=== PATIENT | female | born 2000 | race Caucasian/White ===

== ENCOUNTER 2021-04-17 09:04 | Outpatient (CLI) | payer OTHER, SELFPAY ==
[2021-04-17 09:31] LABS: Hematocrit 42.5 % (37.0-47.0); Mean Corpuscular HGB Conc 32.9 g/dl (32-36); Mean Corpuscular Hemoglobin 30.1 pg (26-34); Mean Corpuscular Volume 91.4 fl (80-100); Mean Platelet Volume 11.2 fl (7.4-10.4); Platelet Count Result 197 k/mm3 (150-375); Red Blood Count 4.65 M/mm3 (4.2-5.4); Red Cell Distribution Width 12.6 % (11.5-14.5); White Blood Count 3.1 K/mm3 (4.5-10.0)
[2021-04-17 09:48] LABS: Anion Gap 8 mmol/L (8-16); Blood Urea Nitrogen 15 mg/dL (7-17); Calcium 9.7 mg/dL (8.4-10.2); Carbon Dioxide 28 mmol/L (22-30); Chloride 103 mmol/L (98-107); Estimated Glomerular Filt Rate > 60; Glucose 99 mg/dL (65-110); Potassium 4.3 mmol/L (3.4-5.0); Sodium 139 mmol/L (137-145)
[2021-04-17 11:49] LABS: Iron 54 ug/dL (37-170)
== END 2021-04-17 09:05 | disposition home or self-care (01) ==
PROVIDERS: PCP Family Medicine; Visit Provider Nurse Practitioner Family
DX: R20.2 Paresthesia of skin (principal); D64.9 Anemia, unspecified; F41.9 Anxiety disorder, unspecified
CPT/HCPCS: 36415; 80048; 82607; 83540; 84443; 85027

== ENCOUNTER 2022-09-21 12:07 | Emergency (ER) | payer OTHER, SELFPAY ==
[2022-09-21 12:21] VITALS: BP 117/73; PULSE 67; RESP 16; TEMP 37; O2SAT 100
--- NOTE | 2022-09-21 12:30 | ED.EAR ---
HPI - Ear Problem General Chief complaint: Ear Stated complaint: ear pain Time Seen by Provider: 09/21/22 12:25 Source: patient Mode of arrival: ambulatory Limitations: no limitations History of Present Illness HPI Narrative: Ms. Bushra tan is a 22-year-old female patient presenting to the clinic today with complaints of right-sided ear pain for the last few days. She reports that she is having some ringing and some throbbing in the right ear. She thinks that she may have an ear infection. She denies any fevers or chills. She has slight and nasal congestion. Related Data Allergies Allergy/AdvReac Type Severity Reaction Status Date / Time No Known Allergies Allergy Verified 09/21/22 12:18 Review of Systems Review of Systems: Pertinent positives per HPI. Patient denies any fever, chills, rash, headache, visual changes, dizziness, cough, shortness of breath, chest pain, palpitations, nausea, vomiting, diarrhea, constipation, abdominal pain, or any urinary issues. PMFSH Past Medical History Medical History Anxiety Body mass index (BMI) of less than 5th percentile for age in patient 18 years to less than 21 years of age Family History Family History Father Diabetes mellitus Mother No problems noted. Sibling No problems noted. 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 There is no relevant family history pertinent to the patient complaint. Exam Narrative: General: Well-developed, well nourished, in no apparent distress Head: Normocephalic, atraumatic Eyes: Pupils equally round and reactive to light bilaterally, EOM intact, sclera and conjunctive clear, no discharge, lids normal Ears: TMs intact, dull, with right TM bulging, ear canals clear, no drainage, grossly hearing normal. Nose: Nares patent, clear nasal discharge, no inflammation, no sinus tenderness. Mouth: Oral pharynx without lesions or masses, good dentition, MMM. Neck: Supple, trachea midline, no enlargement of anterior or posterior cervical nodes, no thyroid masses or goiter palpable. Cardio: Regular rate and rhythm, s1 and s2 normal, no murmur appreciated. Resp: Clear to auscultation bilaterally, no rhonchi, rales, wheezing or rubs Course Course Emergency Course: Portions of this record may have been created with voice recognition software. Level of Care: Express Care Visit Vital Signs Vital signs: Vital Signs Temperature 37.0 C 09/21/22 12:21 Pulse Rate 67 09/21/22 12:21 Respiratory Rate 16 09/21/22 12:21 Blood Pressure 117/73 09/21/22 12:21 Pulse Oximetry 100 09/21/22 12:21 Oxygen Delivery Room Air 09/21/22 12:21 Temperature 37.0 C 09/21/22 12:21 Pulse Rate 67 09/21/22 12:21 Respiratory Rate 16 09/21/22 12:21 Blood Pressure 117/73 09/21/22 12:21 Pulse Oximetry 100 09/21/22 12:21 Oxygen Delivery Room Air 09/21/22 12:21 Vital signs reviewed Medical Decision Making MDM Narrative Medical decision making narrative: At the time of visit patient is resting comfortably on the exam table. I suspect that the patient has eustachian tube dysfunction of the right ear. Prescription for prednisone was sent to the pharmacy as well as supportive measures were discussed with the patient she voiced understanding of discharge instructions and agrees to treatment plan. Lillie
== END 2022-09-21 12:34 | disposition home or self-care (01) ==
PROVIDERS: Emergency Provider Nurse Practitioner Family; PCP Family Medicine
DX: H69.91 Unspecified Eustachian tube disorder, right ear (principal)
CPT/HCPCS: 99213; G0463